=== PATIENT | female | born 1975 | race Caucasian/White ===

== ENCOUNTER → 2019-03-31 17:12 | Outpatient (CLI) | payer BC, SELFPAY ==
--- NOTE | ~2019-03-31 | MM_ITS ---
EXAMINATION: MM screening larry BI w aysha HISTORY: Screening mammogram TECHNIQUE: Craniocaudal and mediolateral oblique 3-D tomosynthesis images were obtained and synthetic 2-D images were generated. CAD analysis was submitted and interpreted. COMPARISON: 07/19/2017 BREAST PARENCHYMAL COMPOSITION: The breasts are heterogeneously dense, which may obscure small masses . FINDINGS: There is no evidence of suspicious mass, calcification, or architectural distortion to sugg est malignancy in either breast. There has been no suspicious interval change. IMPRESSION: 1. No mammographic evidence of malignancy. 2. Recommend routine screening mammography in one year. BI-RADS Category 1: Negative Reviewed, dictated and finalized at location A. NCED NURSING PROFESSOR
== END ==
PROVIDERS: PCP Emergency Medicine
DX: Z12.31 Encounter for screening mammogram for malignant neoplasm of breast (principal)
CPT/HCPCS: 77063; 77067

== ENCOUNTER 2019-09-05 09:36 | Emergency (ER) | payer BC, SELFPAY ==
--- NOTE | ~2019-09-05 | XR_ITS ---
XR nasal bones min 3V DATE: 09/05/2019 10:09 INDICATION: Fall. Struck nose on floor. TECHNIQUE: Rincon and left and right lateral views COMPARISON: None FINDINGS: There is a small virtually nondisplaced fracture near the tip of the nasal bones. The anter ior maxillary spine is intact. There is moderately prominent mucoperiosteal thickening of both maxillary sinuses. The frontal sinuse s are minimally developed. The mastoid air cells appear normally developed and aerated. IMPRESSION: Small virtually nondisplaced fracture at the tip of the nasal bones Reviewed, dictated and finalized at location B.
--- NOTE | ~2019-09-05 | XR_ITS ---
EXAMINATION: XR elbow LT min 3V DATE: 09/05/2019 10:31 INDICATION: Left elbow pain TECHNIQUE: Anteroposterior, two oblique and lateral views of the left elbow were obtained. COMPARISON: None. FINDINGS: Alignment is normal. No fracture or joint effusion. Joint spaces are normal. There is mild soft tissue swelling overlying the medial elbow. IMPRESSION: 1. No acute osseous abnormality. Reviewed, dictated and finalized at location A.
[2019-09-05 09:43] VITALS: BP 148/90; PULSE 74; RESP 16; TEMP 36.5; O2SAT 100
--- NOTE | 2019-09-05 09:57 | ED.GENADULT ---
HPI - General Adult General Chief complaint: Fall Stated complaint: poss broken nose Time Seen by Provider: 09/05/19 09:52 Source: RN notes reviewed History of Present Illness HPI narrative: Patient presents emergency department from home for fall. Patient states last night she tripped and fell striking her face on the ground. She states that that time she had pain in her nose with bleeding from the nose. States bleeding from the nose is resolved but noted swelling and ecchymosis concern about possible broken nose. Notes mild swelling to the upper lip as well as mild tenderness to frontal teeth. Denies any chipped or avulsed teeth. She notes mild headache states she had no loss of consciousness. She denies any neck pain. Patient denies any other symptoms at this time Related Data Home Medications Medication Instructions Recorded Confirmed norethindrone 1 mg-ethinyl 1 tablet PO DAILY 07/14/19 estradiol 20 mcg (21)-iron 75 mg (7) tablet Allergies Allergy/AdvReac Type Severity Reaction Status Date / Time erythromycin base Allergy Unknown Rash Verified 09/05/19 09:48 Penicillins Allergy Unknown Rash Verified 09/05/19 09:48 Review of Systems Review of Systems: Narrative: Gen.: Denies fevers or chills Eyes: Denies eye pain or visual change ENT: See HPI Respiratory: Denies shortness of breath or cough CV: Denies chest pain or palpitations GI: Denies abdominal pain nausea, emesis or diarrhea denies Musculoskeletal: Denies back pain or muscle pain Neuro: Denies numbness, tingling, weakness or focal weakness reports mild headache Skin: Denies rash Except as documented, all other systems reviewed and negative PMFSH Past Medical History Medical History Hypothyroidism (acquired) Social History Social History Smoking status: Former smoker Smoking end date: 02/12/15 Alcohol intake: never Exam Narrative: Exam Narrative: APPEARANCE: Well appearing, no apparent distress, well-nourished. HEENT: normocephalic. TMs clear bilaterally. Oral mucosa moist. No tenderness over bilateral zygomatic arch. Full range of motion of jaw without pain. Tender palpation over the nasal bridge with swelling and mild ecchymosis present, bilateral nares patent with no active bleeding seen, mild swelling of the midline upper lip, all teeth are intact with no loose or avulsed teeth EYES: PERRL NECK: Supple. No midline tenderness to palpation. Full range of motion without pain RESPIRATORY: No respiratory distress. Clear to auscultation bilaterally CARDIOVASCULAR: Regular rate and rhythm without murmurs rubs or gallops. ABDOMINAL: Soft, nontender, nondistended, MUSCULOSKELETAl: Moves all extremities. No clubbing cyanosis or edema NEURO: Awake and alert ?3. Follows commands. Speech normal. No focal deficits. SKIN:: Warm, dry. Normal Color Course Course Emergency Course: Patient has some complaints of left elbow pain, mild tenderness over medial condyle will obtain x-ray Discussed with patient results of workup and diagnosis. Discussed need for follow-up with primary care, proper use of medication, and reasons to return to the emergency department. Patient understands and agrees to current treatment plan Vital Signs Vital signs: Vital Signs Temperature 97.7 F 09/05/19 09:43 Pulse Rate 74 09/05/19 09:43 Respiratory Rate 16 09/05/19 09:43 Blood Pressure 148/90 H 09/05/19 09:43 Pulse Oximetry 100 09/05/19 09:43 Temperature 97.7 F 09/05/19 09:43 Pulse Rate 74 09/05/19 09:43 Respiratory Rate 16 09/05/19 09:43 Blood Pressure 148/90 H 09/05/19 09:43 Pulse Oximetry 100 09/05/19 09:43 Medical Decision Making Vital Signs Vital Signs: Vital Signs Temperature 97.7 F 09/05/19 09:43 Pulse Rate 74 09/05/19 09:43 Respiratory Rate 16 09/05/19 09:43 Blood Pressure 148/90 H
[2019-09-05] MEDS: IBUPROFEN 600 MG TABLET PO (10:13)
== END 2019-09-05 11:04 | disposition home or self-care (01) ==
PROVIDERS: Emergency Provider Emergency Medicine; PCP Emergency Medicine
DX: S02.2XXA Fracture of nasal bones, initial encounter for closed fracture (principal); S50.02XA Contusion of left elbow, initial encounter; Z87.891 Personal history of nicotine dependence; E03.9 Hypothyroidism, unspecified; W19.XXXA Unspecified fall, initial encounter
CPT/HCPCS: 70160; 73080; 99284; A9270

== ENCOUNTER 2020-05-20 08:05 | Outpatient (CLI) | payer BC, SELFPAY ==
--- NOTE | ~2020-05-20 | MM_ITS ---
EXAMINATION: MM screening larry BI w aysha HISTORY: Screening mammogram TECHNIQUE: Craniocaudal and mediolateral oblique 3-D tomosynthesis images were obtained and synthetic 2-D images were generated. CAD analysis was submitted and interpreted. COMPARISON: 03/31/2019, 07/19/2017 bilateral digital screening mammogram examinations BREAST PARENCHYMAL COMPOSITION: The breasts are heterogeneously dense, which may obscure small masses . FINDINGS: There is no evidence of suspicious mass, calcification, or architectural distortion to sugg est malignancy in either breast. There has been no suspicious interval change. IMPRESSION: 1. No mammographic evidence of malignancy. 2. Recommend routine screening mammography in one year. BI-RADS Category 1: Negative Reviewed, dictated and finalized at location A.
== END 2020-05-20 08:06 | disposition home or self-care (01) ==
PROVIDERS: PCP Emergency Medicine
DX: Z12.31 Encounter for screening mammogram for malignant neoplasm of breast (principal)
CPT/HCPCS: 77063; 77067

== ENCOUNTER 2021-02-13 17:10 | Emergency (ER) | payer BC, SELFPAY ==
--- NOTE | ~2021-02-13 | XR_ITS ---
EXAMINATION: XR finger 1st RT min 2V DATE: 02/13/2021 17:30 INDICATION: Right thumb pain. TECHNIQUE: 3 views of right thumb were obtained. COMPARISON: Right wrist radiographs 01/27/2016 FINDINGS: Bone alignment is normal. No fracture. Joint spaces are well maintained. IMPRESSION: 1. No fracture. Reviewed, dictated and finalized at location A. X PROGRAMMER IMPRESSION: 1. No fracture.
[2021-02-13 17:31] VITALS: BP 194/94; PULSE 86; RESP 16; TEMP 36.1; O2SAT 100
--- NOTE | 2021-02-13 17:51 | ED.GENADULT ---
HPI - General Adult General Chief complaint: Extremity Injury, Upper Stated complaint: Thumb Rt Hand Time Seen by Provider: 02/13/21 17:39 Source: patient and RN notes reviewed Mode of arrival: ambulatory Limitations: no limitations History of Present Illness HPI narrative: Patient presents today complaining of an injury to her right thumb. She closed it in her car door 4 hours prior to exam. She does report some tingling in the tip, but denies numbness. She currently rates her pain 7/10 and has applied some ice with some relief. MD complaint: Thumb injury Related Data Home Medications Medication Instructions Recorded Confirmed norethindrone 1 mg-ethinyl 1 tablet PO DAILY 07/14/19 02/13/21 estradiol 20 mcg (21)-iron 75 mg (7) tablet Allergies Allergy/AdvReac Type Severity Reaction Status Date / Time erythromycin base Allergy Unknown Rash Verified 02/13/21 17:35 Penicillins Allergy Unknown Rash Verified 02/13/21 17:35 Review of Systems Review of Systems: CONSTITUTIONAL: Denies body aches, fever, chills, or sweats. EYES: Denies visual changes, redness, or discharge. ENT: Denies rhinorrhea, congestion, sore throat, or otalgia. CARDIOVASCULAR: Denies chest pain, palpitations, or edema. RESPIRATORY: Denies cough or dyspnea. GASTROINTESTINAL: Denies abdominal pain, nausea, vomiting, or diarrhea. GENITOURINARY: Denies dysuria or hematuria. SKIN: Denies rash, itching, or wounds. MUSCULOSKELETAL: Denies back pain, or myalgia. + Right thumb injury NEUROLOGIC: Denies headache, numbness, tingling, or weakness. PSYCH: Denies depression or anxiety. [facility] Past Medical History Medical History (Updated 02/13/21 @ 17:57 by Lauren Koroma, ADDIS, BC) Hypothyroidism (acquired) Family History Family History Father Hypertension Family history of diabetes mellitus in first degree relative Mother Hypertension Social History Social History Smoking status: Former smoker Smoking end date: 02/12/15 Alcohol intake: never Comments At time of signature, I have reviewed and agree with nursing past medical, surgical, social and family history unless otherwise noted. Please see nursing chart for further information. There is no relevant family history pertinent to the presenting complaint Exam Narrative: GENERAL: Well-appearing, well-nourished, and in no acute distress. HEAD: Normocephalic, atraumatic. EYES: EOMI. No redness or drainage. Conjunctivae normal. ENT: Mucous membranes pink and moist. NECK: Normal AROM. CHEST: No respiratory distress. EXTREMITIES: Right thumb: Subungual hematoma to the proximal half of the nail. Tenderness to the distal phalan and interphalangeal joint extending to the proximal phalanx. Sensation intact. Capillary refill normal. Full AROM with increased pain. SKIN: Warm, dry, no rash. Capillary refill normal. Normal skin turgor. NEURO: No focal deficits. Alert and oriented x3. Gait steady. PSYCH: Normal affect. No signs of depression or anxiety. Course Course Level of Care: Express Care Visit Vital Signs Vital signs: Vital Signs Temperature 96.9 F L 02/13/21 17:31 Pulse Rate 86 02/13/21 17:31 Respiratory Rate 16 02/13/21 17:31 Blood Pressure 194/94 H 02/13/21 17:31 Pulse Oximetry 100 02/13/21 17:31 Temperature 96.9 F L 02/13/21 17:31 Pulse Rate 86 02/13/21 17:31 Respiratory Rate 16 02/13/21 17:31 Blood Pressure 194/94 H 02/13/21 17:31 Pulse Oximetry 100 02/13/21 17:31 Reviewed. Pt has been instructed to follow up with her PCP regarding her elevated blood pressure today. Medical Decision Making Differential Diagnosis Differential Diagnosis: Fracture, contusion, subungual hematoma Vital Signs Vital Signs: Vital Signs Temperature 96.9 F L 02/13/21 17:31 Pulse Rate 86 02/13/21 17:31 Respiratory Rate 16
== END 2021-02-13 18:00 | disposition home or self-care (01) ==
PROVIDERS: Emergency Provider Nurse Practitioner; PCP Emergency Medicine
DX: S60.111A Contusion of right thumb with damage to nail, initial encounter (principal); W23.0XXA Caught, crushed, jammed, or pinched between moving objects, initial encounter; Z87.891 Personal history of nicotine dependence; E03.9 Hypothyroidism, unspecified
CPT/HCPCS: 73140; 99213; G0463

== ENCOUNTER 2021-10-09 10:51 | Emergency (ER) | payer BC, SELFPAY ==
[2021-10-09 10:59] VITALS: BP 156/89; PULSE 85; RESP 18; TEMP 36.4; O2SAT 99
[2021-10-09 11:01] VITALS: BP 156/89; PULSE 85; RESP 18; TEMP 36.4; O2SAT 99
--- NOTE | 2021-10-09 11:11 | ED.URI ---
HPI - URI/Sore Throat General Chief Complaint: Upper Respiratory Infection Stated Complaint: Cough,Sinus,SOB Time Seen by Provider: 10/09/21 11:00 Source: patient and RN notes reviewed Mode of arrival: ambulatory Limitations: no limitations History of Present Illness HPI Narrative: 46 y/o female presented for c/o nonproductive cough worsening over 2 weeks. Endorses sinus pressure and congestion. Today feels like she cannot take full deep breath and has heard wheezing. Cough worse at night. Denies sob, fever, chills, n/v/d or chest pain. PCP prescribed tessalon perles this week without significant change. Also taking otc mucinex, cough/cold med, flonase, and routine wilber/claritin. MD elicited complaint: cough Related Data Home Medications Medication Instructions Recorded Confirmed norethindrone 1 mg-ethinyl 1 tablet PO DAILY 07/14/19 10/09/21 estradiol 20 mcg (21)-iron 75 mg (7) tablet (03/03 (28)) Allergies Allergy/AdvReac Type Severity Reaction Status Date / Time erythromycin base AdvReac Mild Rash Verified 10/09/21 11:00 Penicillins AdvReac Mild Rash Verified 10/09/21 11:00 Review of Systems Review of Systems: CONSTITUTIONAL: denies malaise, chills, sweats, fever EYES: Denies visual changes, redness, or discharge ENT: Reports rhinorrhea, congestion, sinus pain, denies otalgia, sore throat CARDIOVASCULAR: Denies chest pain, palpitations, edema RESPIRATORY: Reports cough, post nasal drainage. Denies dyspnea GASTROINTESTINAL: Denies abdominal pain, nausea, vomiting, diarrhea PMFSH Past Medical History Medical History Hypothyroidism (acquired) Family History Family History Father Hypertension Family history of diabetes mellitus in first degree relative Mother Hypertension Social History Social History Smoking status: Former smoker Smoking end date: 02/12/15 Alcohol intake: never Exam Narrative: GENERAL: well-appearing EYES: conjunctivae clear ENT: Mucous membranes moist. TM pearly mcneil with dull light reflex bilaterally; no tragal tenderness. Oropharynx erythematous without lesions or exudate, no drooling, no hoarseness, no trismus, uvula midline. CHEST: Clear to auscultation, breath sounds equal. No wheezing, rhonchi, rales, or stridor. No respiratory distress, speaks in full sentences. HEART: Regular rate and rhythm. SKIN: Warm, dry, no rash. NEURO: Alert and oriented x3. PSYCH: Normal mood and affect Course Course Emergency Course: Patient is aware of diagnosis, understands and agrees to treatment plan. Anticipatory guidance given. Patient agrees to follow-up as directed and is aware of reasons to seek care at the emergency department. Portions of this record may have been created with voice recognition software Level of Care: Express Care Visit Vital Signs Vital signs: Vital Signs Temperature 97.5 F L 10/09/21 10:59 Pulse Rate 85 10/09/21 10:59 Respiratory Rate 18 10/09/21 10:59 Blood Pressure 156/89 H 10/09/21 10:59 Pulse Oximetry 99 10/09/21 10:59 Oxygen Delivery Room Air 10/09/21 10:59 Temperature 97.5 F L 10/09/21 11:01 Pulse Rate 85 10/09/21 11:01 Respiratory Rate 18 10/09/21 11:01 Blood Pressure 156/89 H 10/09/21 11:01 Pulse Oximetry 99 10/09/21 11:01 Oxygen Delivery Room Air 10/09/21 11:01 reviewed MDM - URI/Sore Throat MDM Narrative Medical decision making narrative: Advised supportive measures for uri and signs/symptoms to go to the ER. Pt is appropriate for outpt treatment and f/u. Differential Diagnosis Differential diagnosis: Likely upper respiratory infection, sinusitis and viral infection Discharge Plan Discharge Clinical Impression: Upper respiratory infection Qualifiers: URI type: unspecified URI Qualified Code(s): J06.9 - Ac
== END 2021-10-09 11:17 | disposition home or self-care (01) ==
PROVIDERS: Emergency Provider Nurse Practitioner Family; PCP Hospitalist
DX: J06.9 Acute upper respiratory infection, unspecified (principal); E03.9 Hypothyroidism, unspecified
CPT/HCPCS: 99213; G0463

== ENCOUNTER 2022-12-26 08:26 | Outpatient (CLI) | payer BC, SELFPAY ==
--- NOTE | ~2022-12-26 | MR_ITS ---
MRI of the cervical spine Clinical History: Radiculopathy Technique: Axial T2-weighted and gradient images, and sagittal T1-weighted, T2-weighted, and STIR elinor ges were acquired. Findings: There is no fracture or subluxation of the cervical spine. Vertebral bodies maintain normal height and alignment. No bone marrow signal abnormality seen. Intervertebral spaces are well preserved throughout the cervical spine. No disc bulge or herniation s een at any cervical level. There are minimal facet joint degenerative changes. No pop spinal canal stenosis, cord compression, or neural foraminal narrowing seen. No abnormal signal seen in the spinal cord. No epidural mass or collection. Paravertebral soft tissue s are unremarkable. Impression: Essentially unremarkable exam. Reviewed, dictated and finalized at location . ENTEROSTOMAL Impression: Essentially unremarkable exam.
== END 2022-12-26 08:27 ==
LOC: MICIMG 08:28
DX: M54.12 Radiculopathy, cervical region (principal)
CPT/HCPCS: 72141